=== PATIENT | female | born 1990 | race African-American/Black ===

== ENCOUNTER 2016-05-15 19:22 | Emergency (ER) | payer OTHER ==
[~2016-05-15] VITALS: Ht 167.6 cm; Wt 97.5 kg
[~2016-05-15 19:22] MED LIST: MACR100C PO
[2016-05-15 19:24] VITALS: BP 140/96; PULSE 82; RESP 14; TEMP 98.4; O2SAT 97
--- NOTE | 2016-05-15 20:38 | PD ---
HPI Chief Complaint: Pain: Acute or Chronic Time Seen by Provider: 20:28 Travel History International Travel<30 days: No Contact w/Intl Traveler<30days: No Traveled to known affect area: No History of Present Illness HPI This is a 26-year-old female who presents for evaluation of left great toe pain. 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 She says that she slept today and when she woke up this afternoon she had pain in her left great toe. Pain is an aching pain is constant but is worse when she walks. She says that the pain sometimes shoots up the leg. She denies any specific injury to the left great toe. She denies any history of gouty arthritis. Denies any back pain, abdominal pain, fevers, chills. She has not used any medication for symptom relief. She has no other complaints. PFSH Past Medical History : 2 Para: 0 Miscarriage: 2 : 0 Past Surgical History Other Surgery: Yes (cyst in neck removed as a child) Social History Alcohol Use: Yes (SOCIALLY ) Tobacco Use: Yes (PT STATES SHE SOMETIMES SMOKES BLACK & MILDS) Substance Use: No Allergies-Medications (Allergen,Severity, Reaction): Coded Allergies: No Known Allergies (Unverified , 05/15/16) Reported Meds & Prescriptions Reported Meds & Active Scripts Active No Active Prescriptions or Reported Medications Review of Systems Except as stated in HPI: all other systems reviewed are Neg Physical Exam Narrative GENERAL: Well-developed well-nourished female in no acute distress SKIN: Warm and dry. CARDIOVASCULAR: Regular rate and rhythm. No murmur appreciated. RESPIRATORY: No accessory muscle use. Clear to auscultation. Breath sounds equal bilaterally. GASTROINTESTINAL: Abdomen soft, non-tender, nondistended. Hepatic and splenic margins not palpable. MUSCULOSKELETAL: No obvious deformities. There is tenderness to palpation along the shaft of the left great toe. There is no paronychia, no cellulitic changes. The toenail is intact. There is no joint swelling. There is no range of motion limitation. There is no tenderness to palpation of the second through fifth toes. There is no tenderness to palpation of the raining aspects of the left foot, ankle or calf. 2+ dorsalis pedis and posterior tibial pulses. The patient has pain with range of motion activities utilizing the left great toe. Data Data Last Documented VS Vital Signs Date Time Temp Pulse Resp B/P Pulse Ox O2 Delivery O2 Flow Rate FiO2 05/15/16 19:24 98.4 82 14 140/96 97 Room Air Orders Toe (Min 2vws) (05/15/16 ) Splint Or Brace Apply/Monitor (05/15/16 21:28) MDM Medical Decision Making Medical Screen Exam Complete: Yes Emergency Medical Condition: Yes Medical Record Reviewed: Yes Interpretation(s) Toe x-ray no acute abnormalities Differential Diagnosis Toe strain, sprain, stress fracture, contusion, inflammatory arthritis Narrative Course 26-year-old female who woke up this evening with left great toe pain. 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 Physical examination reveals point tenderness to palpation along the shaft of the left great toe. Physical examination is otherwise unremarkable. Therefore left great toe x-ray will be ordered. Toe x- ray is unremarkable. The patient be discharged with a postop shoe. Diagnosis Primary Impression: Pain of left great toe Departure Forms: Tests/Procedures, Work Release Enter return to work date: May 17, 2016 Additional Instructions: Take Tylenol or Motrin for discomfort. Avoid strenuous activity. Postop shoe as needed. Follow with primary care physician as needed. Return for any emergent medical conditions. Med/Other Pt SpecificInfo: Orthopedic Instructions Scripts No Active Prescriptions or Reported Meds Disposition: 01 DISCHARGE HOME Condition: Stable Brian Cox May 15, 2016 20:38
--- NOTE | 2016-05-15 21:08 | RADRPT ---
EXAM DATE/TIME: 05/15/2016 20:48 [facility] COMPARISON: No previous studies available for comparison. INDICATIONS : Pain. MEDICAL HISTORY : None. SURGICAL HISTORY : None. ENCOUNTER: Initial ACUITY: 1 day PAIN SCORE: 5/10 LOCATION: Left 1st digit. FINDINGS: Examination of the first digit of the left foot demonstrates no evidence of fracture or dislocation. No radiopaque foreign bodies are seen. The soft tissues are intact. CONCLUSION: Unremarkable examination of left first toe. Freddie Vasquez MD on May 15, 2016 at 21:05 Board Certified Radiologist. This report was verified electronically.
== END 2016-05-15 22:06 | disposition home or self-care (01) ==
LOC: NEPB 19:22
DX: M79.675 Pain in left toe(s) (principal); Z72.0 Tobacco use
CPT/HCPCS: 73660; 99283; L3260

== ENCOUNTER 2017-06-28 21:34 | Emergency (ER) | payer OTHER ==
[2017-06-28 21:36] VITALS: BP 136/102; PULSE 95; RESP 16; TEMP 99.1; O2SAT 100
[2017-06-28] MEDS ORDERED: PENI500T PO (21:41)
[2017-06-28] MEDS ORDERED: PERI0.126 SWISH-SPIT (21:41)
[2017-06-28] MEDS ORDERED: TRAM50TA PO (21:41)
[2017-06-28] MEDS ORDERED: IBUP1TAB7 PO (21:42)
--- NOTE | 2017-06-28 21:42 | PD ---
HPI Chief Complaint: Oral / Dental Pain or Problem Time Seen by Provider: 21:36 Travel History International Travel<30 days: No Contact w/Intl Traveler<30days: No Traveled to known affect area: No History of Present Illness HPI 27-year-old female presents emergency department for evaluation of dental pain associated with her left maxillary second bicuspid. Patient states she has had a hole in this tooth for an extended amount of time. Over the last 2-3 days, pain has gotten intolerable. It is constant, severe, throbbing. No trauma. No fever or chills. She's been unable get into a dentist. She has no other symptoms to report. PFSH Past Medical History Medical History: Denies Significant Hx ?: Not LMP: 06/06/2017 : 2 Para: 0 Miscarriage: 2 : 0 Past Surgical History Other Surgery: Yes (cyst in neck removed as a child) Social History Alcohol Use: Yes (SOCIALLY ) Tobacco Use: Yes (PT STATES SHE SOMETIMES SMOKES BLACK & MILDS) Substance Use: No Allergies-Medications (Allergen,Severity, Reaction): Coded Allergies: No Known Allergies (Unverified , 05/15/16) Reported Meds & Prescriptions Reported Meds & Active Scripts Active Ibuprofen 800 Mg Tab 800 Mg PO Q8H PRN Peridex Liq (Chlorhexidine Gluconate (Mouth) Liq) 0.12% Soln 15 Ml SWISH-SPIT BID Tramadol (Tramadol HCl) 50 Mg Tab 50 Mg PO Q8H PRN Penicillin V Potassium 500 Mg Tab 500 Mg PO Q8H 10 Days Review of Systems Except as stated in HPI: all other systems reviewed are Neg Physical Exam Narrative GENERAL: Well-nourished, well-developed male patient in no acute distress SKIN: Focused skin assessment warm/dry. HEAD: Normocephalic. No erythema or edema EYES: No scleral icterus. No injection or drainage. DENTAL: No loose or chipped teeth. There is a hole in the left maxillary second bicuspid. Surrounding gingival erythema and edema. No appreciable abscess. No malocclusion. NECK: Supple, trachea midline. No JVD or lymphadenopathy. CARDIOVASCULAR: Regular rate RESPIRATORY:No accessory muscle use. GASTROINTESTINAL: Abdomen nondistended MUSCULOSKELETAL: No cyanosis, or edema. BACK: No obvious deformity Data Data Last Documented VS Vital Signs Date Time Temp Pulse Resp B/P (MAP) Pulse Ox O2 Delivery O2 Flow Rate FiO2 06/28/17 21:41 06/28/17 21:36 99.1 95 16 100 Orders Orders Ed Discharge Order (06/28/17 21:42) MDM Medical Decision Making Medical Screen Exam Complete: Yes Emergency Medical Condition: Yes Medical Record Reviewed: Yes Differential Diagnosis Dental caries versus dental abscess versus pulpitis versus gingivitis versus periodontal disease Narrative Course 27-year-old female presents to emergency department for evaluation of dental pain. Patient does have a whole in the tooth with associated gingival erythema and edema. Again I do not appreciate an abscess. Patient is in agreement with prescriptions home for antibiotic and pain control. She is encouraged to follow -up with a dentist as soon as possible and return immediately with any acute worsening symptoms. Diagnosis Primary Impression: Dentalgia Additional Impression: Gingivitis Referrals: Dentist Primary Care Physician Patient Instructions: General Instructions, Gingivitis (ED) Additional Instructions: SEEK DENTAL EVALUATION SOON POSSIBLE RETURN TO ED WITH ACUTE WORSENING OF SYMPTOMS Med/Other Pt SpecificInfo: Prescription(s) given Scripts Ibuprofen (Ibuprofen) 800 Mg Tab 800 MG PO Q8H Y for Pain/Inflammation, #30 TAB 0 Refills Prov: La Nena Rivera 06/28/17 Chlorhexidine Gluconate (Mouth) Liq (Peridex Liq) 0.12% Soln 15 ML SWISH-SPIT BID, #473 ML 0 Refills Prov: La Nena Rivera 06/28/17 Tramadol (Tramadol) 50 Mg Tab 50 MG PO Q8H Y for PAIN GREATER THAN 6, #20 TAB 0 Refills Prov: La Nena Rivera 06/28/17 Penicillin V Potassium (Penicillin V Potassium) 500 Mg Tab 500 MG PO Q8H for Infection for 10 Days, #30 TAB 0 Refills Prov: La Nena Rivera 06/28/17 Disposition: 01 DISCHARGE HOME Condition: Stable La Nena Rivera Jun 28, 2017 21:42
== END 2017-06-28 22:00 | disposition home or self-care (01) ==
LOC: NED 21:34
DX: K08.89 Other specified disorders of teeth and supporting structures (principal); K05.00 Acute gingivitis, plaque induced; Z72.0 Tobacco use
CPT/HCPCS: 99283

== ENCOUNTER 2017-10-07 15:28 | Emergency (ER) | payer OTHER ==
[~2017-10-07] VITALS: Ht 167.6 cm; Wt 88.5 kg
[~2017-10-07 15:28] MED LIST changes: +IBUP1TAB7 PO; -MACR100C PO; +PENI500T PO; +PERI0.126 SWISH-SPIT; +TRAM50TA PO
[2017-10-07 15:35] VITALS: BP 159/85; PULSE 80; RESP 18; TEMP 97.9; O2SAT 99
--- NOTE | 2017-10-07 17:15 | PD ---
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 She does not know if it is there for sure, but thinks it is, because they do not know what happened to the condom. Reports foul vaginal odor and discharge that started today. Denies dysuria. Denies abdominal pain, fever, vomiting. Denies pelvic pain. Has not taken any medications or try any treatments to alleviate her symptoms. Symptoms are mild to moderate in severity. No known aggravating or relieving factors. No primary care provider. No known allergies. Denies significant past medical history. Has no other medical complaints. No other modifying factors or associated signs and symptoms. PFSH Past Medical History Diminished Hearing: No LMP: September 23, 2017 : 2 Para: 0 Miscarriage: 2 : 0 Past Surgical History Other Surgery: Yes (cyst in neck removed as a child) Social History Alcohol Use: Yes (SOCIALLY ) Tobacco Use: Yes (PT STATES SHE SOMETIMES SMOKES BLACK & MILDS) Substance Use: No Allergies-Medications (Allergen,Severity, Reaction): Coded Allergies: No Known Allergies (Unverified Adverse Reaction, Unknown, 10/07/17) Reported Meds & Prescriptions Reported Meds & Active Scripts Active Ibuprofen 800 Mg Tab 800 Mg PO Q8H PRN Peridex Liq (Chlorhexidine Gluconate (Mouth) Liq) 0.12% Soln 15 Ml SWISH-SPIT BID Tramadol (Tramadol HCl) 50 Mg Tab 50 Mg PO Q8H PRN Penicillin V Potassium 500 Mg Tab 500 Mg PO Q8H 10 Days Review of Systems Except as stated in HPI: all other systems reviewed are Neg Physical Exam Narrative GENERAL: Well-nourished, well-developed black female patient, in no acute distress; afebrile, nontoxic-appearing SKIN: Warm and dry. HEAD: Atraumatic. Normocephalic. EYES: Pupils equal and round. No scleral icterus. No injection or drainage. ENT: Mucous membranes pink and moist. NECK: Trachea midline. No lymphadenopathy. CARDIOVASCULAR: Regular rate. RESPIRATORY: No accessory muscle use. GASTROINTESTINAL: Flat. PELVIC: Exam done in the presence of a nurse. Speculum exam reveals retained condom; Nonedematous and nonerythematous cervix with creamy white, mucopurulent , foul-smelling discharge. Bimanual exam reveals no palpable masses or adnexa tenderness, no uterine tenderness. No cervical motion tenderness. MUSCULOSKELETAL: No obvious deformities. No clubbing. No cyanosis. No edema. NEUROLOGICAL: Awake and alert. No obvious cranial nerve deficits. Motor grossly within normal limits. Normal speech. PSYCHIATRIC: Appropriate mood and affect; insight and judgment normal. Data Data Last Documented VS Vital Signs Date Time Temp Pulse Resp B/P (MAP) Pulse Ox O2 Delivery O2 Flow Rate FiO2 10/07/17 15:35 97.9 80 18 159/85 (109) 99 Orders Orders Gc And Chlamydia Pcr (10/07/17 17:09) Wet Prep Profile (10/07/17 17:09) Urinalysis - C+S If Indicated (10/07/17 17:09) Ed Urine Pregnancytest Poc (10/07/17 17:09) [facility] Medical Decision Making Medical Screen Exam Complete: Yes Emergency Medical Condition: Yes Medical Record Reviewed: Yes Differential Diagnosis Retained foreign body of the vagina, bacterial vaginosis, medical clearance Narrative Course 27-year-old female with retained vaginal foreign body. I removed a condom from the patient's vagina using forceps. Wet prep, chlamydia, gonorrhea, urinalysis ordered. 1899: Report given to Kenia Rivera DNP change of shift. See her note for final patient disposition. Diagnosis Primary Impression: Retained foreign body of vagina Qualified Codes: T19.2XXA - Foreign body in vulva and vagina, initial encounter Referrals: [facility] Tubing Supervisor Primary Care Physician Patient Instructions: General Instructions, Vaginal Foreign Body (ED) Additional Instructions: Follow-up with collaborating supervising physician Follow-up with primary care provider Return to the emergency department immediately with worsening of symptoms Laina Siddiqi October 07, 2017 17:15
--- NOTE | 2017-10-07 19:20 | PD ---
Physical Exam Time Seen by Provider: 19:19 Narrative Please refer to previous providers documentation for details surrounding the patient's current visit Data Data Last Documented VS Vital Signs Date Time Temp Pulse Resp B/P (MAP) Pulse Ox O2 Delivery O2 Flow Rate FiO2 10/07/17 15:35 97.9 80 18 159/85 (109) 99 Orders Orders Gc And Chlamydia Pcr (10/07/17 17:09) Wet Prep Profile (10/07/17 17:09) Urinalysis - C+S If Indicated (10/07/17 17:09) Ed Urine Pregnancytest Poc (10/07/17 17:09) MDM Medical Record Reviewed: Yes Supervised Visit with DANNY: No Narrative Course Prior to results, patient states she cannot wait any longer that her right is here. She is choosing to leave AGAINST MEDICAL ADVICE. AMA: The risks of leaving against medical advice without further evaluation treatment were discussed with the patient. These risks include cardiac dysfunction, cardiac dysrhythmia, possible heart attack, possible stroke or . The patient indicated understanding of these risks and appeared to have the capacity to make this decision. Diagnosis Primary Impression: Retained foreign body of vagina Referrals: [facility] Senior Engineering Team Leader Primary Care Physician Patient Instructions: General Instructions, Vaginal Foreign Body (ED) Departure Forms: Tests/Procedures Additional Instruction: Follow-up with educational/development assistant Follow-up with primary care provider Return to the emergency department immediately with worsening of symptoms Disposition: 07 AGAINST MEDICAL ADVICE Condition: Stable La Nena Rivera DAVID October 07, 2017 19:20
[2017-10-07 19:54] LABS: AMORPHOUS SEDIMENT, URINE FEW; BILIRUBIN, URINE NEG (NEG); BLOOD, URINE NEG (NEG); GLUCOSE,URINE NEG (NEG); KETONE, URINE NEG (NEG); NITRITE,URINE NEG (NEG); SQUAMOUS EPITHELIAL CELL URINE 15 /hpf (0-5); URINE COLOR LIGHT-YELLOW (YELLW/STRAW); URINE LEUKOCYTE ESTERASE NEG (NEG)
== END 2017-10-07 19:18 | disposition left against medical advice (07) ==
LOC: NEPD 15:28
DX: T19.2XXA Foreign body in vulva and vagina, initial encounter (principal)
CPT/HCPCS: 81001; 87210; 87491; 87591; 99284